=== PATIENT | female | born 1945 | race Caucasian/White ===

== ENCOUNTER 2018-09-08 10:14 | Inpatient (IN) | payer OTHER | END 2018-09-11 16:28 | LOC: SUR 10:14 → WEST WING 18:14 | PROC: 0SRC0J9 Replacement of Right Knee Joint with Synthetic Substitute, Cemented, Open Approach (ICD-10-PCS; principal; 2018-09-08 13:45) | PROC: 0MBN0ZZ Excision of Right Knee Bursa and Ligament, Open Approach (ICD-10-PCS; 2018-09-08 13:45) | PROC: 0KNQ0ZZ Release Right Upper Leg Muscle, Open Approach (ICD-10-PCS; 2018-09-08 13:45) | DX: M70.41 Prepatellar bursitis, right knee (principal); M24.561 Contracture, right knee ==